=== PATIENT | female | born 1975 | race Asian ===

== ENCOUNTER 2016-09-24 00:44 | Inpatient (IN) | payer SELFPAY ==
[~2016-09-24] VITALS: Ht 157.5 cm; Wt 73.5 kg
[2016-09-24 01:19] VITALS: BP 113/68
[2016-09-24] MEDS ORDERED: LACTATED RINGERS 1,000 ML IV SCH (01:25)
[2016-09-24] MEDS ORDERED: [UNRECOGNIZED DRUG - OTHER] (03:03)
[2016-09-24] MEDS ORDERED: ceFAZolin 1,000 MG VIAL ONE ×2 (05:34→06:30)
[2016-09-24] MEDS ORDERED: TRIAMCINOLONE 40 MG/ML 5ML VIAL ONE (06:07)
[2016-09-24] MEDS ORDERED: OXYTOCIN 10 UNITS/ML VIAL ONE (06:08)
[2016-09-24] MEDS ORDERED: MORPHINE PRES FREE 10 MG/10 ML AMP IV ONE (06:11)
[2016-09-24] MEDS ORDERED: MIDAZOLAM 2 MG/2 ML VIAL ONE (06:11)
[2016-09-24] MEDS ORDERED: BUPIVACAINE-MPF 0.75% 10 ML VIAL INJ ONE (06:30)
[2016-09-24] MEDS ORDERED: SIMETHICONE 80 MG TAB.CHEW PO PRN (07:00)
[2016-09-24] MEDS ORDERED: IBUPROFEN 800 MG TAB PO PRN (07:00)
[2016-09-24] MEDS ORDERED: oxyCODONE/APAP 5/325 MG 1 TAB TAB PO PRN (07:00)
[2016-09-24] MEDS ORDERED: METHYLERGONOVINE 0.2 MG/ML AMP IM PRN (07:00)
[2016-09-24] MEDS ORDERED: TEMAZEPAM 15 MG CAP PO PRN (07:00)
[2016-09-24] MEDS ORDERED: MEASLES, MUMPS, AND RUBELLA 1 VIAL SQVAC PRN (07:00)
[2016-09-24] MEDS ORDERED: TRIMETHOBENZAMIDE 200 MG/2 ML SYR IM PRN (07:00)
[2016-09-24] MEDS ORDERED: OXYTOCIN 20 UNITS/LR PREMIX 1,000 ML IV SCH (07:12)
[2016-09-24] MEDS ORDERED: NALBUPHINE 10 MG/ML AMP IVP PRN (07:15)
[2016-09-24] MEDS ORDERED: ONDANSETRON 4 MG/2 ML VIAL IVP PRN ×2 (07:15)
[2016-09-24] MEDS ORDERED: diphenhydrAMINE 50 MG/ML VIAL IVP PRN ×2 (07:15)
[2016-09-24] MEDS ORDERED: NALOXONE 0.4 MG/ML VIAL IVP PRN ×3 (07:15)
[2016-09-24] MEDS ORDERED: HYDROmorphone 1 MG/ML AMP IVP PRN (07:15)
[2016-09-24] MEDS ORDERED: MEPERIDINE 25 MG/ML SYR IVP PRN (07:15)
[2016-09-24] MEDS ORDERED: OXYTOCIN 20 UNITS/LR PREMIX 1,000 ML IV ONE (08:02)
[2016-09-24] MEDS ORDERED: KETOROLAC 30 MG/ML VIAL IM/IVP SCH (12:00)
--- NOTE | 2016-09-24 12:25 | NUR ---
PATIENT HAS BEEN SCREENED AND CATEGORIZED LOW NUTRITION RISK. PATIENT WILL BE SEEN WITHIN 7 DAYS OF ADMISSION. 10/01/16 IRIS ALONSO MBA, RD
[2016-09-24] MEDS: OXYTOCIN 20 UNITS/LR PREMIX 1,000 ML IV SCH ×2 (13:43→22:01)
[2016-09-24] MEDS: DOCUSATE SOD/SENNA 50/8.6 MG 1 TAB PO SCH (21:00)
[2016-09-25] MEDS: OXYTOCIN 20 UNITS/LR PREMIX 1,000 ML IV SCH (05:43)
[2016-09-25] MEDS: HYDROcodone/APAP 5/325 MG 1 TAB TAB PO PRN ×2 (14:28→20:27)
[2016-09-25] MEDS: DOCUSATE SOD/SENNA 50/8.6 MG 1 TAB PO SCH (20:28)
[2016-09-26] MEDS: DOCUSATE SOD/SENNA 50/8.6 MG 1 TAB PO SCH (20:58)
[2016-09-27] MEDS ORDERED: MOTRIN600 MG PO (10:04)
== END 2016-09-27 11:50 | disposition home or self-care (01) | DRG 766 ==
LOC: MLD 00:44 → MFCC 08:00
PROVIDERS: ADMIT Obstetrics & Gynecology; ATTEND Obstetrics & Gynecology
PROC: 0UB70ZZ Excision of Bilateral Fallopian Tubes, Open Approach (ICD-10-PCS; 2016-09-24)
PROC: 10D00Z1 Extraction of Products of Conception, Low, Open Approach (ICD-10-PCS; principal; 2016-09-24 06:00)
DX: O34.211 Maternal care for low transverse scar from previous cesarean delivery (principal); O99.284 Endocrine, nutritional and metabolic diseases complicating childbirth; E05.90 Thyrotoxicosis, unspecified without thyrotoxic crisis or storm; Z37.0 Single live birth; Z30.2 Encounter for sterilization; Z3A.39 39 weeks gestation of pregnancy